=== PATIENT | female | born 1990 | race Caucasian/White ===

== ENCOUNTER 2018-05-17 07:06 | Day surgery (SDC) | payer OTHER ==
[2018-05-17] MEDS ORDERED: SOD CHLORIDE 0.9% 1,000 ML IV (09:00)
[2018-05-17] MEDS: LIDOCAINE 1% (MDV) 10 ML INJ (11:16)
[2018-05-17] MEDS ORDERED: HYDROCODONE/APAP (5/325) TAB PO (11:30)
== END 2018-05-17 13:28 | disposition home or self-care (01) ==
LOC: SDS 07:06
DX: B18.2 Chronic viral hepatitis C (principal); K76.0 Fatty (change of) liver, not elsewhere classified; E78.5 Hyperlipidemia, unspecified
CPT/HCPCS: 47000; 88307; 88313